=== PATIENT | male | born 1940 | race Caucasian/White ===

== ENCOUNTER 2023-07-18 09:05 | Day surgery (SDC) | payer MEDICARE ==
[2023-07-18] MEDS ORDERED: DIPRIVAN 200 MG/20 ML IV ONE (11:30)
--- NOTE | 2023-07-18 13:29 | XRAY ---
Indication: Left L4-S1 transforaminal CARIN. Intraoperative fluoroscopy provided for 20 seconds. 4 digital spot image submitted for interpretation demonstrates posterior needle tips projecting over the expected left L4 and L5 nerve roots. Small amount of contrast injected for needle tip placement. Correlate with intraoperative findings/report. Incidental incompletely visualized aortic stent.
[2023-07-18] MEDS ORDERED: Lactated Ringers 1,000 ML IV ONE (15:03)
--- NOTE | 2023-07-18 16:44 | XRAY ---
20 seconds of fluoroscopy was used in surgery for a left L4-S1 transforaminal CARIN.
== END 2023-07-18 12:00 | disposition home or self-care (01) ==
LOC: SDC-PAIN 09:05
PROVIDERS: ATTEND Psychiatry & Neurology Pain Medicine
DX: M54.16 Radiculopathy, lumbar region (principal); E11.9 Type 2 diabetes mellitus without complications
CPT/HCPCS: 64483; 64484; 72100; 77003; 82947; J2704; Q9966

== ENCOUNTER 2024-02-20 11:01 | Day surgery (SDC) | payer MEDICARE ==
[2024-02-20] MEDS ORDERED: Depo-Medrol 40 MG/ML IM ONE (11:02)
[2024-02-20] MEDS ORDERED: Sodium Chloride 0.9(Preservative Free) 10 ML IJ ONE (11:02)
[2024-02-20] MEDS ORDERED: LIDOCAINE HCL 1% AMPUL 5 ML IJ ONE (11:02)
[2024-02-20] MEDS ORDERED: propofoL IV ONE (11:43)
--- NOTE | 2024-02-20 14:41 | XRAY ---
Indication: Lumbar CARIN. Intraoperative fluoroscopy provided for 23 seconds. 3 digital spot image submitted for interpretation demonstrates posterior needle tip projecting posterior to lumbosacral junction interspace. Small amount of contrast injected for needle tip placement. Correlate with intraoperative findings/report.
--- NOTE | 2024-02-20 14:52 | XRAY ---
23 seconds of fluoroscopy was used in surgery for a lumbar CARIN.
== END 2024-02-20 12:35 | disposition home or self-care (01) ==
LOC: SDC-PAIN 11:01
PROVIDERS: ATTEND Psychiatry & Neurology Pain Medicine
DX: M54.16 Radiculopathy, lumbar region (principal); E11.9 Type 2 diabetes mellitus without complications
CPT/HCPCS: 62323; 72100; 77003; 82947; J2704; Q9966

== ENCOUNTER 2024-03-26 12:04 | Day surgery (SDC) | payer MEDICARE ==
[2024-03-26] MEDS ORDERED: Sodium Chloride 0.9(Preservative Free) 10 ML IJ ONE (12:05)
[2024-03-26] MEDS ORDERED: dexAMETHasone sodium phosphate IJ ONE (12:05)
[2024-03-26] MEDS ORDERED: propofoL IV ONE (13:24)
--- NOTE | 2024-03-26 14:20 | XRAY ---
Indication: Caudal CARIN. Intraoperative fluoroscopy provided for 14 seconds. 4 digital spot images submitted for interpretation demonstrates caudal needle tip projecting mid sacrum. Small amount of contrast injected for needle tip placement. Correlate with intraoperative findings/report.
--- NOTE | 2024-03-26 14:57 | XRAY ---
14 seconds of fluoroscopy was used in surgery for a caudal CARIN.
== END 2024-03-26 13:59 | disposition home or self-care (01) ==
LOC: SDC-PAIN 12:04
PROVIDERS: ATTEND Psychiatry & Neurology Pain Medicine
DX: M54.16 Radiculopathy, lumbar region (principal); E11.9 Type 2 diabetes mellitus without complications
CPT/HCPCS: 62323; 72220; 77003; 82947; J1100; J2704; Q9966